=== PATIENT | male | born 1955 | race Caucasian/White ===

== ENCOUNTER 2016-12-01 11:12 | Outpatient (CLI) | payer MEDICARE ==
[~2016-12-01] VITALS: Ht 175.3 cm; Wt 87.7 kg
--- NOTE | ~2016-12-01 | HEMODYNAMI ---
PATIENT:PETE NICOLE MEDICAL RECORD: [id number] : 51 LOCATION:D.CAT ADMISSION DATE: 12/01/16 Generatedon:12/01/201614:42 Patient name: PETE NICOLE Patient #: [id number] SSN: : 1955 Date of study: 12/01/2016 Page: Of Hemodynamic Procedure Report Patient Data Patient Demographics Procedure consent was obtained First Name: PETE Gender: Male Last Name: COREY : 1955 Middle Initial: MAREK Age: 61 year(s) Patient #: [id number] Race: Unknown Additional ID: [id number] Contact details [address]: [address] [place] [address] State: [place] City: [place] Zip code: [address] Past Medical History Allergies Allergen Reaction Date Comments Reported Aspirin 12/01/2016 Admission Admission Data Admission Date: 12/01/2016 Admission Time: 11:12 Lab Results Lab Result Date: 12/01/2016 Lab Result Time: 0:00 Biochemistry Name Units Result Min Max Creatinine mg/dl 1.3 --(---*)-- 0.6 1.3 CBC Name Units Result Min Max Hemoglobin g/dl 16.4 --(--*-)-- 13.5 17.5 Procedure Procedure Types Cath Procedure Diagnostic Procedure [facility] w/Coronaries PCI Procedure Coronary Stent Initial Miscellaneous Procedures Moderate Sedation up to 45 minutes Procedure Description Procedure Date Procedure Date: 12/01/2016 Procedure Start Time: 14:09 Procedure End Time: 14:42 Procedure Staff Name Function Dario Herman MD Performing Physician Hiram Carranza RT Scrub Santana Argueta RN Nurse Prema Montelongo RT Monitor Procedure Data Cath Procedure Fluoroscopy Diagnostic fluoroscopy Total fluoroscopy Time: 6.7 time: 6.7 min min Diagnostic fluoroscopy Total fluoroscopy dose: dose: 1133 mGy 1133 mGy Contrast Material Contrast Material Type Amount (ml) Isovue 300 137 Entry Location Entry Primary Successful Side Size Upsize Upsize Entry Closure [place] ccessful Closure Location (Fr) 1 (Fr) 2 (Fr) Remarks Device Remarks Radial Right 6 Fr Mechanical artery Short Compression Estimated blood loss: 5 ml Diagnostic catheters Device Type Used For End Catheter Placement Terumo 5Fr Rico 110cm LV Angiography catheter Terumo 5Fr Rico 110cm Right Coronary catheter Angiography Terumo Optitorque 5Fr Left Coronary Trena catheter Angiography Terumo 5Fr Bryant 110cm Left Coronary catheter Angiography Procedure Complications No complications Procedure Medications Medication Administration Route Dosage Oxygen NC 2 l/min Heparin Flush Bag added to field 2 bags (1000units/500ml NS) 0.9% NaCl I.V. 100 ml/hr Radial Cocktail added to field 1 syringe (Verapomil 2mg/Nitro 400mcg/Heparin 1500units) Fentanyl I.V. 50 mcg Versed I.V. 1 mg Fentanyl I.V. 50 mcg Versed I.V. 1 mg Fentanyl I.V. 50 mcg Radial Cocktail I.A. 1 syringe (Verapomil 2mg/Nitro 400mcg/Heparin 1500units) Fentanyl I.V. 50 mcg Versed I.V. 1 mg Heparin Bolus I.V. 9000 units Plavix P.O. 75 mg Hemodynamics Rest HGB: 16.4 (g/dl) Heart Rate: 89 (bpm) Pressure Samples Time Site Value (mmHg) Purpose Heart Use Rate(bpm) 14:12 LV 176/-25,4 EDP 103 14:13 AO 154/83(108) Pullback 100 14:13 LV 151/-11,9 Pullback 100 Gradients Valve Time Site 1 Site 2 Mean SEP/DFP Peak To Heart Use (mmHg) (sec/min) Peak Rate (mmHg) (bpm) Aortic 14:13 LV AO 0 4 0 100 151/-11,9 154/83(108) Calculations Valve P-P Mean Valve Index Valve Source Name Gradient Area Flow (cm2) Aortic 0 0 0 0 Snapshots Pre Cath Intra NCS Post Cath Vital Signs Time Heart Resp SPO2 NIBP (mmHg) Rhythm Pain Sedation Rate (ipm) (%) Status Level (bpm) 13:50:59 84 25 100 140/84(112) NSR 0 (11) 10(A) , No pain 13:55:11 89 12 100 138/84(105) NSR 0 (11) 10(A) , No pain 13:59:21 87 17 100 131/82(97) NSR 0 (11) 10(A) , No pain 14:03:31 92 19 98 140/80(95) NSR 0 (11) 10(A) , No pain 14:07:45 92 19 98 123/82(103) NSR 0 (11) 9(A) , No pain 14:11:51 103 21 98 125/82(97) NSR 0 (11) 9(A) , No pain 14:16:01 102 19 93 120/68(104) NSR 0 (11) 9(A) , No pain 14:20:07 103 18 95 110/73(104) NSR 0 (11) 9(A) , No pain 14:24:12 102 18 95 115/70(91) NSR 0 (11) 9(A) , No pain 14:28:20 106 17 97 123/70(92) NSR 0 (11) 9(A) , No pain 14:32:32 113 17 97 125/68(83) NSR 0 (11) 9(A) , No pain 14:37:25 115 17 96 109/69(93) NSR 0 (11) 9(A) , No pain 14:41:31 109 16 97 122/69(93) NSR 0 (11) 10(A) , No pain Medications Time Medication Route Dose Verified Delivered Reason Note s Effectiveness by by 13:58:28 Oxygen NC 2 l/min Santana Dillon Per physician Kendall Argueta RN RN 13:58:38 Heparin Flush added 2 bags Santana Dillon used for Bag to eKndall Argueta RN procedure (1000units/500ml field TAYLOR NS) 13:58:49 0.9% NaCl I.V. 100 Santana Metcalfy Per physician ml/hr Kendall Argueta RN RN 13:59:02 Radial Cocktail added 1 Santana Santana used for (Verapomil to syringe Kendall Argueta RN procedure 2mg/Nitro RN 400mcg/Heparin 1500units) 14:01:24 Fentanyl I.V. 50 mcg Santana Santana for sedation Kendall Argueta RN RN 14:01:32 Versed I.V. 1 mg Santana Metcalfy for sedation Kendall Argueta RN RN 14:04:59 Fentanyl I.V. 50 mcg Santana Santana for sedation Kendall Argueta RN RN 14:05:03 Versed I.V. 1 mg Santana Santana for sedation Kendall Argueta RN RN 14:10:06 Fentanyl I.V. 50 mcg Santana Santana for sedation Kendall Argueta RN RN 14:11:51 Radial Cocktail I.A. 1 Santana Dario for (Verapomil syringe Kendall Herman MD vasodilation 2mg/Nitro RN 400mcg/Heparin 1500units) 14:11:59 Fentanyl I.V. 50 mcg Santana Santana for sedation Kendall Argueta RN RN 14:20:15 Versed I.V. 1 mg Santana Santana for sedation Kendall Argueta RN RN 14:27:51 Heparin Bolus I.V. 9000 Santana Santana for units Kendall Argueta RN anticoagulation RN 14:39:01 Plavix P.O. 75 mg Santana Dillon for Kendall Argueta RN antiplatelet RN therapy Procedure Log Time Note 13:42:07 Santana Argueta RN sent for patient. Start room use. 13:42:07 Time tracking: Regular hours 13:42:11 Plan of Care:Hemodynamics will remain stable., Cardiac rhythm will remain stable., Comfort level will be maintained., Respiratory function will remain adequate., Patient/ family verbilizes understanding of procedure., Procedure tolerated without complication., Recovers from procedure without complications.. 13:42:33 Patient received from Pre/Post Procedure Room to CCL 2 Alert and oriented. Tansferred to table in Supine position. 13:42:34 Warm blankets applied, and danae hugger turned on for patient comfort. 13:42:35 Correct patient and procedure confirmed by team. 13:42:36 Signed procedure consent form obtained from patient. 13:42:36 ECG and BP/O2 sat monitors applied to patient. 13:42:37 Full Disclosure recording started 13:50:00 Vital chart was started 13:55:33 Rhythm: sinus rhythm 13:56:11 H&P Date Dictated: 12/01/2016 Within 30 days and on chart.. 13:56:13 Pre-procedure instructions explained to patient. 13:56:14 Pre-op teaching completed and patient verbalized understanding. 13:56:18 Family in patients room. 13:56:20 Patient NPO since Midnight. 13:56:57 Patient allergic to Aspirin 13:57:44 Is the patient allergic to Iodine/contrast media? No. 13:57:50 Is patient on blood thinner?No 13:58:28 Oxygen 2 l/min NC was administered by Santana Argueta RN; Per physician; 13:58:36 Patient diabetic? No. 13:58:38 Heparin Flush Bag (1000units/500ml NS) 2 bags added to field was administered by Santana Argueta RN; used for procedure; 13:58:40 Previous problem with sedation/anesthesia? No ? 13:58:41 Snore? Yes 13:58:43 Sleep apnea? No 13:58:44 Deviated septum? No 13:58:44 Opens mouth fully? Yes 13:58:45 Sticks out tongue? Yes 13:58:47 Airway obstruction? No ? 13:58:49 0.9% NaCl 100 ml/hr I.V. was administered by Santana Argueta RN; Per physician; 13:58:49 Dentures? No ? 13:58:57 Pre procedure: right dorsailis pedis pulse 2+ Normal; easily identifiable; not easily obliterated 13:58:59 Modified Sher's test Ulnar < 7 seconds 13:59:01 Patient pain scale 0/10 ?. 13:59:02 Radial Cocktail (Verapomil 2mg/Nitro 400mcg/Heparin 1500units) 1 syringe added to field was administered by Santana Argueta RN; used for procedure; 13:59:07 IV patent on arrival in left hand with 0.9% NaCl at KVO. 13:59:38 Lab Result : Creatinine 1.3 mg/dl 13:59:38 Lab Result : Hemoglobin 16.4 g/dl 13:59:42 Lab results completed and on chart. 13:59:45 Right Radial & Right Groin area was prepped with chlora-prep and draped in sterile fashion 13:59:46 Alarms reviewed by R. N. 13:59:46 Sharps counted by scrub and verified by R.N. 13:59:49 Final Timeout: patient, procedure, and site verified with staff and physician. All members of the team are in agreement. 13:59:52 Right Radial site verified by team. 13:59:55 Physical assessment completed. ASA score P 2 - A patient with mild systemic disease as per Dario Herman MD. 14:00:04 Sedation plan: IV Moderate Sedation Versed, Fentanyl 14:00:59 Use device set Radial Dx 14:01:00 Acist Syringe opened to sterile field. 14::00 Medline Cath Pack opened to sterile field. 14:: Bag Decanter opened to sterile field. 14:01: Terumo 6Fr Slender Glidesheath opened to sterile field. 14:01:02 St Rocco 260cm J .035 wire opened to sterile field. 14::02 Acist Hand Control opened to sterile field. 14::03 Acist Manifold opened to sterile field. 14::04 Tegaderm 4 x 4 opened to sterile field. 14::04 MBrace Wrist Support opened to sterile field. 14:01:24 Fentanyl 50 mcg I.V. was administered by Santana Argueta RN; for sedation; 14:01:32 Versed 1 mg I.V. was administered by Santana Argueta RN; for sedation; 14:02:04 Baseline sample Acquired. 14::59 Fentanyl 50 mcg I.V. was administered by Santana Argueta RN; for sedation; 14:05:03 Versed 1 mg I.V. was administered by Santana Argueta RN; for sedation; 14:08:40 Zero performed for pressure channel P1 14:09:06 Procedure started. 14:09:44 Local anesthetic to right radial artery with Lidocaine 2% by Dario Herman MD.INITIAL ACCESS ONLY 14:10:06 Fentanyl 50 mcg I.V. was administered by Santana Argueta RN; for sedation; 14:11:28 A 6 Fr Short sheath was inserted into the Right Radial artery 14:11:40 A Terumo 5Fr Rico 110cm catheter was advanced over the wire and used for LV Angiography. 14:11:51 Radial Cocktail (Verapomil 2mg/Nitro 400mcg/Heparin 1500units) 1 syringe I.A. was administered by Dario Herman MD; for vasodilation; 14::59 Fentanyl 50 mcg I.V. was administered by Santana Argueta RN; for sedation; 14:12:48 LV gram done using MAKI 14:12:52 EF : 60 % 14:12:52 LV hemodynamics recorded. 14:12:55 Injector settings: Ml/sec: 5, Volume: 15, 14:13:46 A Terumo 5Fr Rico 110cm catheter was advanced over the wire and used for Right Coronary Angiography. 14:15:41 Catheter removed. 14:17:28 A Terumo Optitorque 5Fr Trena catheter was advanced over the wire and used for Left Coronary Angiography.removed. Unable to cannulate. 14:20:15 Versed 1 mg I.V. was administered by Santana Argueta RN; for sedation; 14:20:29 A Terumo 5Fr Bryant 110cm catheter was advanced over the wire and used for Left Coronary Angiography. 14:21:46 High Pressure Extension Tubing (Herman) opened to sterile field. 14:21:47 SputnikBot BasixCompak Inflation Kit opened to sterile field. 14:21:47 CourseAdvisor BMW [place] 2 J-tip 300cm 0.014 guide wir opened to sterile field. 14:21:54 Catheter removed. 14:22:05 Medtronic Launcher 6Fr AR 1.0 guide catheter opened to sterile field. 14:23:44 6 Fr AR 1.0 guide catheter was inserted over the wire 14:27:51 Heparin Bolus 9000 units I.V. was administered by Santana Argueta RN; for anticoagulation; 14:29:47 BMW wire advanced. 14:32:28 Inflation Number: 1 A Medtronic Integrity 4.0 X 30 stent was prepped and advanced across the Prox RCA. The stent was deployed at 12 BAUTISTA for 0:19 (min:sec). 14:35:07 Stent catheter was removed intact over wire. 14:35:10 Wire removed. 14:35:11 Guide catheter removed. 14:35:23 Sheath removed intact; hemostasis achieved with Mechanical Compression to the Right Radial artery. 14:35:26 Procedure ended.(Physican Out) 14:35:44 Fluoroscopy time 06.70 minutes. 14:35:49 Flurop Dose total: 1133 14:35:49 Fluoroscopy dose: 1133 mGy 14:36:03 Contrast amount:Isovue 300 137ml. 14:36:04 Sharps counted by scrub and verified by R.N. 14:36:07 TR band inflated with 12cc of air. 14:36:09 Insertion/operative site no bleeding no hematoma. 14:36:19 Post right radial artery:stable, clean and dry 14:36:21 Post Procedure Pulses reassessed and unchanged 14:36:24 Post-procedure physical assessment completed. ASA score P 2 - A patient with mild systemic disease as per Dario Herman MD. 14:36:26 Post procedure rhythm: unchanged. 14:36:29 Estimated blood loss: 5 ml 14:36:31 Post procedure instruction explained to patient.Patient verbalizes understanding. 14:36:31 Patient needs reinforcement of post procedure teaching. 14:36:48 Procedure type changed to Cath procedure, Diagnostic procedure, LHC, LHC w/Coronaries, PCI procedure, Coronary Stent Initial, Miscellaneous Procedures, Moderate Sedation up to 45 minutes 14:37:09 Procedure Complication : No complications 14:37:11 See physician's report for complete and final results. 14:37:27 Terumo TR Band Standard opened to sterile field. 14:38:27 Cook 21G 4cm Radial Needle opened to sterile field. 14:39:01 Plavix 75 mg P.O. was administered by Santana Argueta RN; for antiplatelet therapy; 14:40:02 Procedure and supply charges have been captured, reviewed, submitted and are correct. 14:42:05 Vital chart was stopped 14:42:07 Report given to Pre/Post Procedure Room. 14:42:10 Patient transfered to Pre/Post Procedure Room with Stretcher. 14:42:24 Procedure ended. 14:42:24 Full Disclosure recording stopped 14:42:29 End room use (Document Last) Intervention Summary Intervention Notes Time ActionType Lesion and Equipment Action# Pressure Duration Attributes Used 14:32:28 Place stent Prox RCA Medtronic 1 12 00:19 Integrity 4.0 X 30 stent Device Usage Item Name Manufacture Quantity Catalog Hospital Part Current Minimal Lot# / Number Charge Number Stock Stock Serial# Code Acist Acist 1 27157 684681 089332 584680 20 Syringe Medical Systems Inc Medline Cardinal 1 [id number] 425899 46219 913390 5 Cath Pack Health Bag Microtek 1 695833 06524 675850 5 Rackspace. Terumo 6Fr Terumo 1 [id number] 905879 397895 252487 [address] Rocco St Rocco 1 287129 011974 864383 229561 30 260cm J .035 wire Acist Hand Acist 1 96247 778736 352537 899679 5 Control Medical Systems Inc Acist Acist 1 70607 610345 865460 661498 5 [facility] Medical Systems Inc Tegaderm 4 3M 1 1626W 156079 994084 897781 5 x 4 MBrace Advanced 1 140-0250-00 968367 59560 394949 5 Wrist Vascular Support Dynamics Terumo 5Fr Terumo 1 40-5023 322746 000145 888231 5 Rico 110cm catheter Terumo Terumo 1 40-5022 500277 258223 795702 5 Optitorque 5Fr Trena catheter Terumo 5Fr Terumo 1 40-5013 816894 935387 376012 5 Bryant 110cm catheter High Merit 1 [id number] 133295 11882 283470 10 Pressure Medical Extension Tubing (Herman) Merit Merit 1 CE1227 115140 320813 524324 15 BasixCompak Medical Inflation Kit Irwin BMW Irwin 1 [id number] 823905 891938 977431 5 [place] 2 Vascular J-tip 300cm 0.014 guide wir Medtronic Medtronic 1 [id number] 128461 45780 271518 1 Launcher 6Fr AR 1.0 guide catheter Medtronic Medtronic 1 [id number] 313711 713379 406724 4 [id number] Integrity 4.0 X 30 stent Terumo TR Terumo 1 [id number] 540428 156828 621758 40 Band Standard Cook 21G Cook Medical 1 [id number] 362636 392345 504297 5 4cm Radial Needle Signature Audit [place] Stage Time Signature Unsigned Intra-Procedure 12/01/2016 Prema 2:42:41 PM Counts RT(R) Signatures Monitor : Prema Signature : Counts RT Date : Time : [facility] [address] [place] [address]
[2016-12-01] MEDS ORDERED: HYDROCHLOROTHIA25 MG GT (11:43)
[2016-12-01] MEDS ORDERED: TOPROL XL50 MG PO (11:44)
[2016-12-01] MEDS ORDERED: LEXAPRO20 MG PO (11:44)
[2016-12-01] MEDS ORDERED: ACCUPRIL40 MG (11:44)
[2016-12-01] MEDS ORDERED: MOBIC7.5 MG PO (11:45)
[2016-12-01] MEDS ORDERED: PLAVIX75 MG PO (11:45)
[2016-12-01] MEDS ORDERED: PROTONIX40 MG PO (11:45)
[2016-12-01] MEDS ORDERED: HYDROCODON-ACE1 EAC7 (11:46)
[2016-12-01] MEDS ORDERED: PRAVACHOL20 MG PO (11:46)
[2016-12-01 11:49] VITALS: BP 158/80; Ht 175.3 cm; Wt 87.7 kg
[2016-12-01 11:57] LABS: BASOPHILS 0.2 % (0-2); HEMATOCRIT 47.2 % (42.0-54.0); HEMOGLOBIN 16.4 g/dL (13.5-17.5); IMMATURE GRANULOCYTES 0.1 % (0-5); MCH 32.4 pg (26.0-34.0); MCHC 34.7 g/dL (31.0-37.0); MCV 93.3 fL (80.0-100.0); MEAN PLATELET VOLUME 9.7 fL (7.4-10.4); MONOCYTES 10.9 % (2-11); NEUTROPHILS 40.8 % (40-80); PLATELET COUNT 217 10x3/uL (130-400); RBC 5.06 10x6/uL (4.20-6.10); RDW 12.6 % (11.5-14.5); WBC 8.2 10x3/uL (4.8-10.8)
[2016-12-01 12:14] LABS: CALCIUM 9.5 mg/dL (8.5-10.1); CARBON DIOXIDE 25.9 mmol/L (21.0-32.0); CREATININE - SERUM 1.3 mg/dL (0.6-1.3); POTASSIUM - SERUM 3.9 mmol/L (3.5-5.1)
[2016-12-01] MEDS ORDERED: BAYER CHEWABLE81 MG PO (15:11)
--- NOTE | 2016-12-01 17:47 | NUR ---
1510 SITTING UP, ROOM AIR WITH NO DISTRESS. NSR RATE 76 WNO C/O CHEST PAIN. PULSES PALP X 4. R WRIST TR BAND C/D/I WITH NO HEMATOMA OR BLEEDING. WILL MONITOR CLOSELY FOR BLEEDING. DENIES NEEDS AT THIS TIME. AT BEDSIDE. 1540 ALL VITALS REMAIN WNL. R WRIST TR BAND C/D/I W NO HEMATOMA OR BLEEDING. SITTING UP EATING SANDWICH WITH ASSIST FROM . 1630 R WRIST TR REMAINS C/D/I, NO NEEDS AT THIS TIME
--- NOTE | 2016-12-01 18:21 | NUR ---
2 CC AIR REMOVED FROM R WRIST TR BAND. WILL MONITOR FOR BLEEDING.
--- NOTE | 2016-12-01 18:40 | NUR ---
PIV REMOVED FROM LEFT HAND WITH BANDAID APPLIED. UP TO BEDSIDE TO DRESS WITH ASSIST FROM .
--- NOTE | 2016-12-01 19:00 | NUR ---
REMAINING AIR REMOVED FROM R WRIST TR BAND. TEGADERM AND COTTON BALL APPLIED TO WRIST. BRACE IN PLACE. D/C INSTRUCTIONS DISCUSSED WITH PATIENT AND AT BEDSIDE. WHEELED OUT VIA WHEELCHAIR BY CATH TEAM.
--- NOTE | 2016-12-09 10:59 | OP ---
PATIENT NAME: PETE NICOLE MEDICAL RECORD: [id number] :51 LOCATION:D.CAT ADMISSION DATE: SURGEON: LAITH CALDERON M.D. DATE OF OPERATION: 12/01/2016 REFERRING PHYSICIAN: Elizabeth Moreno MD. PROCEDURES PERFORMED: 1. Selective coronary angiography. 2. Left heart catheterization with ventriculogram. 3. PTCA and stent placement in the right coronary artery. INDICATION: A 61-year-old gentleman presents with symptoms of angina. Recent stress test revealed inferior wall ischemia. EQUIPMENT USED: Diagnostic 5-Portuguese Lamberton catheter, [id number]. INTERVENTION: A 6-Portuguese AR1 guide, BMW guidewire, 4.0 x 30 mm Integrity stent. TECHNIQUE: A 6-Portuguese sheath was inserted in retrograde fashion in the right radial artery. Next, selective coronary angiography was performed in standard views using 5-Portuguese Lamberton catheter. The right coronary was cannulated with an AR1 catheter. CORONARY ANATOMY: 1. Left main: Left main trunk is moderate in caliber. It gives rise to the LAD and circumflex. There is no obstruction. 2. LAD: This is a moderate-caliber vessel extending to the apex. It has mild irregularities in the proximal segment, but nothing worse than 20%. 3. Circumflex: This vessel is moderate in caliber. It provides the lateral branch in the proximal segment. This vessel is angiographically normal. 4. Right coronary: This vessel is quite large in caliber and dominant. The proximal vessel demonstrates a ruptured plaque representing a 60%-70% stenosis. There appears to be a linear dissection of about 20-30 mm involving the mid vessel distally from the plaque. 5. Left ventricle: Left ventricle is normal in size and function. No wall motion abnormalities are seen. Estimated ejection fraction is 60%. DESCRIPTION OF INTERVENTION: A 100 units per kilogram of heparin was infused. A 6-Portuguese AR1 guide was advanced and engaged in the right coronary artery. Next, a BMW guide wire was placed in the distal vessel. A 4.0 x 30 mm Integrity stent was placed across the ruptured plaque in dissection plane. The stent was then deployed at 12 atmospheres. Injection shows stent to be widely patent with 0% residual stenosis. At this point, the wire and guide were removed. IMPRESSION: Successful percutaneous transluminal coronary angioplasty and stent of right coronary artery with 0% residual stenosis. TRANSINT:[id number] Voice Confirmation ID: [id number] DOCUMENT ID: [id number] OPERATIVE REPORT [id number] PETE NICOLE,LAITH Ying M.D. at 1059 CC: [id number] DICTATION DATE: 12/01/16 144 WATER TREATMENT PLANT REPAIRER: 12/01/168 DEP CLI 12/01/16 [place] [id number]
== END 2016-12-01 19:02 | disposition home or self-care (01) ==
LOC: D.CATH 11:12
PROVIDERS: Internal Medicine Cardiovascular Disease
DX: I20.9 Angina pectoris, unspecified (principal); R06.02 Shortness of breath; R94.30 Abnormal result of cardiovascular function study, unspecified; R55 Syncope and collapse; Z82.49 Family history of ischemic heart disease and other diseases of the circulatory system; E78.5 Hyperlipidemia, unspecified; Z01.812 Encounter for preprocedural laboratory examination

== ENCOUNTER → 2018-04-19 10:32 | Outpatient (CLI) | payer MEDICARE ==
[2016-12-01 11:49] VITALS: BMI 28.5
[~2018-04-19 10:32] MED LIST: ACCUPRIL40 MG; BAYER CHEWABLE81 MG PO; HYDROCHLOROTHIA25 MG GT; HYDROCODON-ACE1 EAC7; LEXAPRO20 MG PO; MOBIC7.5 MG PO; PLAVIX75 MG PO; PRAVACHOL20 MG PO; PROTONIX40 MG PO; TOPROL XL50 MG PO
== END | disposition home or self-care (01) ==
LOC: D.MRI 10:32
DX: M79.604 Pain in right leg (principal)

== ENCOUNTER → 2019-02-07 08:08 | Outpatient (CLI) | payer MEDICARE ==
[2016-12-01 11:49] VITALS: BMI 28.5
== END | disposition home or self-care (01) ==
LOC: D.HCCARDIO 08:08
PROVIDERS: ATTEND Internal Medicine Cardiovascular Disease
DX: I25.119 Atherosclerotic heart disease of native coronary artery with unspecified angina pectoris (principal)

== ENCOUNTER 2019-02-26 11:30 | Outpatient (CLI) | payer MEDICARE ==
[~2019-02-26] VITALS: Ht 175.3 cm; Wt 87.7 kg
--- NOTE | ~2019-02-26 | HEMODYNAMI ---
PATIENT:PETE NICOLE MEDICAL RECORD: [id number] : 51 LOCATION:[facility] ADMISSION DATE: 02/26/19 Generatedon:02/26/201914:32 Patient name: PETE NICOLE Patient #: [id number] SSN: : 1955 Date of study: 02/26/2019 Page: Of Hemodynamic Procedure Report Patient Data Patient Demographics Procedure consent was obtained First Name: PETE Gender: Male Last Name: COREY : 1955 Middle Initial: MAREK Age: 63 year(s) Patient #: [id number] Race: Unknown Additional ID: [id number] Contact details [address]: [address] [place] [address] State: [place] City: [place] Zip code: [address] Past Medical History Allergies Allergen Reaction Date Comments Reported Aspirin 12/01/2016 Other allergy 02/26/2019 ASPIRIN, SALICYLATES Admission Admission Data Admission Date: 02/26/2019 Admission Time: 13:30 Weight (lbs.): 194.01 Weight (kg.): 88 Lab Results Lab Result Date: 02/26/2019 Lab Result Time: 0:00 Biochemistry Name Units Result Min Max BUN mg/dl 20 --(----)*- 7 18 Creatinine mg/dl 1.7 --(----)-* 0.6 1.3 eGFR ml/min 43 *-(----)-- 90 120 NONAFRICAN CBC Name Units Result Min Max Hematocrit % 45 --(*---)-- 42 54 Hemoglobin g/dl 16.2 --(--*-)-- 13.5 17.5 Procedure Procedure Types Cath Procedure Diagnostic Procedure C C w/Coronaries Procedure Description Procedure Date Procedure Date: 02/26/2019 Procedure Start Time: 14:17 Procedure End Time: 14:29 Procedure Staff Name Function Dario Herman MD Performing Physician Cristal Shah RT Monitor Soledad Reece RN Nurse Santos Sims RT Scromari Dockery RT Scrub Procedure Data Cath Procedure Fluoroscopy Diagnostic fluoroscopy Total fluoroscopy Time: 2.6 time: 2.6 min min Diagnostic fluoroscopy Total fluoroscopy dose: 521 dose: 521 mGy mGy Contrast Material Contrast Material Type Amount (ml) Isovue 300 58 Entry Location Entry Primary Successful Side Size Upsize Upsize Entry Closure [place] ccessful Closure Location (Fr) 1 (Fr) 2 (Fr) Remarks Device Remarks Radial Right 6 Fr Mechanical artery Short Compression Estimated blood loss: 5 ml Diagnostic catheters Device Type Used For End Catheter Placement DIAGNOSTIC Rico 110cm Procedure 5Fr catheter ([id number]) Procedure Complications No complications Procedure Medications Medication Administration Route Dosage 0.9% NaCl I.V. 100 ml/hr Oxygen etCO2 Nasal cannula 2 l/min Lidocaine 2% added to field 20 Heparin Flush Bag added to field 2 bags (1000units/500ml NS) Radial Cocktail added to field 1 syringe (Verapamil 2mg/Nitro 400mcg/Heparin 1500units) Versed I.V. 2 mg Fentanyl I.V. 50 mcg Fentanyl I.V. 50 mcg Hemodynamics Rest HGB: 16.2 (g/dl) Heart Rate: 59 (bpm) Pressure Samples Time Site Value (mmHg) Purpose Heart Use Rate(bpm) 14:22 LV 121/9,21 Snapshot 68 Gradients Valve Time Site Site Mean SEP/DFP Peak To Heart Use 1 2 (mmHg) (sec/min) Peak Rate (mmHg) (bpm) Aortic 14:22 LV AO 68 Snapshots Pre Cath Intra NCS Post Cath Vital Signs Time Heart Resp SPO2 etCO2 NIBP Rhythm Pain Sedation Rate (ipm) (%) (mmHg) (mmHg) Status Level (bpm) 14:07:33 63 17 98 29.9 129/46(78) NSR 0 (11) 10(A) , No pain 14:11:51 60 13 100 35.1 115/64(94) NSR 0 (11) 10(A) , No pain 14:16:07 64 10 99 41.9 102/58(84) NSR 0 (11) 10(A) , No pain 14:20:19 65 10 98 41.9 105/60(90) NSR 0 (11) 9(A) , No pain 14:24:28 75 11 96 38.9 95/56(75) NSR 0 (11) 9(A) , No pain 14:28:38 74 11 96 36.6 96/58(75) NSR 0 (11) 10(A) , No pain Medications Time Medication Route Dose Verified Delivered Reason Notes E ffectiveness by by 14:06:20 0.9% NaCl I.V. 100 Dario Soledad used for ml/hr Virgil Reece directory compiler 14:06:28 Oxygen etCO2 2 l/min Dario Soledad used for Nasal Virgil Reece procedure cannula RN 14:06:34 Lidocaine 2% added 20ml Dario Dario for local to vial Virgil Herman MD anesthetic field 14:06:39 Heparin Flush added 2 bags Dario Dario used for Bag to Virgil Herman MD procedure (1000units/500ml field NS) 14:06:45 Radial Cocktail added 1 Dario Dario used for (Verapamil to syringe Virgil Herman MD procedure 2mg/Nitro field 400mcg/Heparin 1500units) 14:13:47 Versed I.V. 2 mg Dario Soledad for Virgil Reece sedation RN 14:13:52 Fentanyl I.V. 50 mcg Dario Soledad for Virgil Reece sedation RN 14:18:56 Fentanyl I.V. 50 mcg Dario Soledad for Virgil Reece sedation mental health counselor Log Time Note 13:55:53 Signed procedure consent form obtained from patient. 13:55:55 Soledad Reece RN sent for patient. Start room use. 13:55:57 Procedure status Elective 13:56:00 Time tracking: Regular hours (M-F 7:00 - 5:00) 13:56:03 Plan of Care:Hemodynamics will remain stable., Cardiac rhythm will remain stable., Comfort level will be maintained., Respiratory function will remain adequate., Patient/ family verbilizes understanding of procedure., Procedure tolerated without complication., Recovers from procedure without complications.. 13:56:13 H&P Date Dictated: 01/31/2019 Within 30 days and on chart., H&P Addendum completed by physician on day of procedure. (MUST COMPLETE FOR ALL OUTPATIENTS). 13:56:30 Patient allergic to Other allergyASPIRIN, SALICYLATES 13:56:40 Patient Weight : 194.01 lbs 13:59:11 Lab Result : Creatinine 1.7 mg/dl 13:59:11 Lab Result : BUN 20 mg/dl 13:59:11 Lab Result : eGFR NONAFRICAN 43 ml/min 13:59:11 Lab Result : Hemoglobin 16.2 g/dl 13:59:11 Lab Result : Hematocrit 45 % 13:59:48 Patient received from Pre/Post Procedure Room to CCL 1 Alert and oriented. Tansferred to table in Supine position. 13:59:49 Warm blankets applied, and danae hugger turned on for patient comfort. 13:59:50 Correct patient and procedure confirmed by team. 13:59:50 ECG and BP/O2 sat monitors applied to patient. 14:06:10 Vital chart was started 14:06:20 0.9% NaCl 100 ml/hr I.V. was administered by Soledad Reece RN; used for procedure; 14:06:28 Oxygen 2 l/min etCO2 Nasal cannula was administered by Soledad Reece RN; used for procedure; 14:06:34 Lidocaine 2% 20ml vial added to field was administered by Dario Herman MD; for local anesthetic; 14:06:39 Heparin Flush Bag (1000units/500ml NS) 2 bags added to field was administered by Dario Herman MD; used for procedure; 14:06:45 Radial Cocktail (Verapamil 2mg/Nitro 400mcg/Heparin 1500units) 1 syringe added to field was administered by Dario Herman MD; used for procedure; 14:08:51 Rhythm: sinus rhythm 14:08:52 Full Disclosure recording started 14:08:52 Pre-procedure instructions explained to patient. 14:08:53 Pre-op teaching completed and patient verbalized understanding. 14:08:54 Family in waiting room. 14:08:55 Patient NPO since Midnight. 14:09:01 Is patient on blood thinner?Yes 14:09:04 ACC The patient was administered the following blood thiners within the last 24 hours: ACCPlavix 14:09:06 Patient diabetic? No. 14:09:08 Previous problem with sedation/anesthesia? No ? 14:09:09 Snore? No 14:09:10 Sleep apnea? No 14:09:11 Deviated septum? No 14:09:12 Opens mouth fully? Yes 14:09:14 Sticks out tongue? Yes 14:09:16 Airway obstruction? No ? 14:09:18 Dentures? No ? 14:09:20 Pre procedure: right dorsailis pedis pulse 1+ Palpable, but thready & weak; easily obliterated 14:09:22 Modified Sher's test Ulnar < 7 seconds 14:09:24 Patient pain scale 0/10 ?. 14:09:30 IV patent on arrival in left hand with 0.9% NaCl at [facility]. 14:09:34 Lab results completed and on chart. 14:09:38 Right Radial & Right Groin area was prepped with chlora-prep and draped in sterile fashion 14:09:39 Alarms reviewed by R. N. 14:09:39 Sharps counted by scrub and verified by R.N. 14:09:42 Use device set Radial Dx or PCI 14:09:43 ACIST Syringe (15664) opened to sterile field. 14:09:44 Bag Decanter (2002S) opened to sterile field. 14:09:45 ACIST Hand Control (01914) opened to sterile field. 14:09:45 ACIST Manifold (86782) opened to sterile field. 14:09:46 Tegaderm 4 x 4 (1626W) opened to sterile field. 14:09:50 Medline Cath Pack ([id number]) opened to sterile field. 14:09:51 MBrace Wrist Support ([id number]) opened to sterile field. 14:09:51 NEEDLE Cook 21G 4cm Radial ([id number]) opened to sterile field. 14:09:52 EMERALD Guide Wire (464-115) opened to sterile field. 14:09:53 SHEATH 6FR RAIN ([id number]) opened to sterile field. 14:12:51 Baseline sample Acquired. 14:12:54 --------ALL STOP TIME OUT------ 14:12:54 Final Timeout: patient, procedure, and site verified with staff and physician. All members of the team are in agreement. 14:12:56 Right Radial & Right Groin site verified by team. 14:12:59 Fire Safety Assessment: A--An alcohol-based skin anteseptic being used preoperatively., C--Open oxygen or nitrous oxide is being used., D--An ESU, laser, or fiber-optic light is being used. 14:13:01 Physical assessment completed. ASA score P 2 - A patient with mild systemic disease as per Dario Herman MD. 14:13:05 3b) 30-44 Moderately reduced kidney function. 14:13:08 Maximum allowable contrast does (3.7 X eGFR X 0.75)119 ml. 14:13:11 Sedation plan: IV Moderate Sedation Medication:Versed, Fentanyl 14:13:47 Versed 2 mg I.V. was administered by Soledad Reece RN; for sedation; 14:13:52 Fentanyl 50 mcg I.V. was administered by Soledad Reece RN; for sedation; 14:17:12 Zero performed for pressure channel P1 14:17:15 Procedure started. 14:17:50 Local anesthetic to right radial artery with Lidocaine 2% by Dario Herman MD.INITIAL ACCESS ONLY 14:18:07 Zero performed for pressure channel P1 14:18:56 Fentanyl 50 mcg I.V. was administered by Soledad Reece RN; for sedation; 14:19:02 A 6 Fr Short sheath was inserted into the Right Radial artery 14:19:51 A DIAGNOSTIC Rico 110cm 5Fr catheter ([id number]) was advanced over the wire and used for Procedure. 14:21:45 LV gram done using MAKI 14::48 Injector settings: Ml/sec: 5, Volume: 15, 14:22:22 LV hemodynamics recorded. 14:22:33 EF : 65 % 14:23:48 RCA angiography performed. 14:26:07 LCA angiography performed. 14:26:22 Catheter removed. 14:26:29 TR BAND Standard ([id number]) opened to sterile field. 14:26:46 Procedure ended.(Physican Out) 14:28:19 Sheath removed intact; hemostasis achieved with Mechanical Compression to the Right Radial artery. 14:28:23 Fluoroscopy time 02.60 minutes. 14:28:27 Flurop Dose total: 521 14:28:27 Fluoroscopy dose: 521 mGy 14:28:30 Contrast amount:Isovue 300 58ml. 14:28:39 TR band inflated with 10cc of air. 14:28:45 Post-procedure physical assessment completed. ASA score P 2 - A patient with mild systemic disease as per Dario Herman MD. 14:28:48 Post procedure rhythm: sinus rhythm 14:28:54 Estimated blood loss: 5 ml 14:28:55 Post procedure instruction explained to patient.Patient verbalizes understanding. 14:28:56 Patient needs reinforcement of post procedure teaching. 14:29:44 Procedure and supply charges have been captured, reviewed, submitted and are correct. 14:29:47 Procedure Complication : No complications 14:29:48 Vital chart was stopped 14:29:49 See physician's report for complete and final results. 14:29:51 Report given to Pre/Post Procedure Room. 14:29:54 Patient transfered to Pre/Post Procedure Room with Bed. 14:29:55 Procedure ended. 14:29:55 Full Disclosure recording stopped 14:30:00 End room use (Document Last) Device Usage Item Name Manufacture Quantity Catalog Hospital Part Current Minima l Lot# / Number Charge Number Stock Stock Serial# Code ACIST Acist 1 55618 124761 233462 860879 20 Syringe Medical (09613) Systems Inc Bag Microtek 1 2001S 341766 73605 175209 5 Decanter Medical Inc. () ACIST Hand Acist 1 52976 048136 626000 878435 5 Control Medical (02799) Systems Inc ACIST Acist 1 99814 092453 420245 090606 5 Manifold Medical (79102) Systems Inc Tegaderm 4 3M 1 1626W 710784 163365 291754 5 x 4 (1626W) Medline Medline 1 [id number] 073117 49687 982533 5 Cath Pack ([id number]) MBrace Advanced 1 140-0250-00 083696 20028 044278 5 Wrist Vascular Support Dynamics ([id number]) NEEDLE Cook Cook Medical 1 O68877 765314 211010 108058 5 21G 4cm Radial (D31473) EMERALD Cardinal 1 502-455 985857 671299 099995 5 Guide Wire Health (538-455) SHEATH 6FR Cardinal 1 [id number] 782832 7220886 304865 5 [facility] (3103976) DIAGNOSTIC Terumo 1 405024 409297 016738 333406 5 Rioc 110cm 5Fr catheter (115690) TR BAND Terumo 1 [id number] 787722 673791 957667 40 Standard ([id number]) Signature Audit [place] Stage Time Signature Unsigned Intra-Procedure 02/26/2019 Cristal Shah 2:32:35 PM RT(R) Signatures Performing Physician : Signature : Dario Herman MD Date : Time : Monitor : Cristal Shah Signature : RT Date : Time : Nurse : Soledad Reece RN Signature : Date : Time : [place] [address] [place] [address]
[~2019-02-26 11:30] MED LIST changes: -HYDROCHLOROTHIA25 MG GT; +HYDROCHLOROTHIA25 MG PO
[2019-02-26 11:42] VITALS: BP 120/66; Ht 175.3 cm; Wt 87.7 kg
[2019-02-26 11:50] LABS: BASOPHILS 0.2 % (0-2); EOSINOPHILS 5.5 % (0-7); HEMOGLOBIN 16.2 g/dL (13.5-17.5); IMMATURE GRANULOCYTES 0.1 % (0-5); LYMPHOCYTES 40.4 % (15-50); MCH 32.5 pg (26.0-34.0); MCV 90.2 fL (80.0-100.0); MEAN PLATELET VOLUME 9.6 fL (7.4-10.4); MONOCYTES 12.2 % (2-11); NEUTROPHILS 41.6 % (40-80); PLATELET COUNT 203 10x3/uL (130-400); RBC 4.99 10x6/uL (4.20-6.10); RDW 13.5 % (11.5-14.5)
[2019-02-26] MEDS ORDERED: FLOMAX0.4 MG PO (12:00)
[2019-02-26 12:05] LABS: ANION GAP 15.3 mmol/L (8-16); CALCIUM 8.9 mg/dL (8.5-10.1); CARBON DIOXIDE 25.5 mmol/L (21.0-32.0); CREATININE - SERUM 1.7 mg/dL (0.6-1.3); POTASSIUM - SERUM 3.8 mmol/L (3.5-5.1)
--- NOTE | 2019-02-26 14:40 | NUR ---
PATIENT ARRIVED TO ROOM 3, PLACE ON CM. VSS. RIGHT TR BAND IN PLACE, NO S/S OF BLEEDING OR HEMATOMA.
--- NOTE | 2019-02-26 14:55 | NUR ---
PHYSICIAN AT BEDSIDE TO UPDATE PATIENT AND SPOUSE. VSS ON ROOM AIR. RIGHT TR BAND IN PLACE, NO S/S OF BLEEDING OR HEMATOMA. NO C/O PAIN, NUMBNESS, OR TINGLING. NO N/V.
--- NOTE | 2019-02-26 15:25 | NUR ---
PATIENT RESTING, VSS ON ROOM AIR. RIGHT TR BAND IN PLACE, NO S/S OF BLEEDING OR HEMATOMA. NO C/O PAIN, NUMBNESS, OR TINGLING. NO N/V. PRESENT AT BEDSIDE.
--- NOTE | 2019-02-26 15:45 | NUR ---
3CC OF AIR REMOVED FROM TR BAND, NO S/S OF BLEEDING OR HEMATOMA. WILL CONTINUE TO MONITOR.
--- NOTE | 2019-02-26 16:15 | NUR ---
4CC OF AIR REMOVED FROM TR BAND, NO S/S OF BLEEDING OR HEMATOMA. NO C/O PAIN, NUMBNESS, OR TINGLING. VSS ON ROOM AIR. IV REMOVED. PATIENT TOLERATING PO FLUIDS, NO N/V.
--- NOTE | 2019-02-26 16:25 | NUR ---
MONITORS REMOVED, PATIENT DRESSED. DRESSING APPLIED TO RIGHT RADIAL SITE, CDI, NO S/S OF BLEEDING OR HEMATOMA. NO C/O PAIN, NUMBNESS, OR TINGLING. WRITTEN AND VERBAL DISCHARGE INSTRUCTIONS GIVEN TO PATIENT AND SPOUSE, BOTH VOICE UNDERSTANDING.
--- NOTE | 2019-02-26 16:35 | NUR ---
PATIENT TRANSPORTED VIA WHEELCHAIR TO CAR WITH SPOUSE DRIVING, ALL BELONGINGS WITH PATIENT.
== END 2019-02-26 16:35 | disposition home or self-care (01) ==
LOC: D.CATH 11:30
PROVIDERS: ATTEND Internal Medicine Cardiovascular Disease
DX: I25.119 Atherosclerotic heart disease of native coronary artery with unspecified angina pectoris (principal); Z95.5 Presence of coronary angioplasty implant and graft; Z01.812 Encounter for preprocedural laboratory examination